=== PATIENT | male | born 1985 | race Two or more races ===

== ENCOUNTER 2023-02-04 12:41 | Emergency (ER) | payer OTHER ==
[~2023-02-04] VITALS: Ht 170.2 cm; Wt 77.1 kg
[2023-02-04 12:55] VITALS: TEMP 97.8
[2023-02-04 14:33] VITALS: BP 105/68
[2023-02-04 15:01] VITALS: O2SAT 99
== END 2023-02-04 15:05 | disposition home or self-care (01) ==
LOC: ER 12:41
DX: S90.02XA Contusion of left ankle, initial encounter (principal); R60.0 Localized edema; W22.8XXA Striking against or struck by other objects, initial encounter; Y93.89 Activity, other specified; Y92.89 Other specified places as the place of occurrence of the external cause; Y99.8 Other external cause status
CPT/HCPCS: 73590-TC